=== PATIENT | female | born 1985 | race Caucasian/White ===

== ENCOUNTER 2017-02-16 09:40 | Emergency (ER) | payer MEDICAID ==
[~2017-02-16] VITALS: Ht 160 cm; Wt 79.0 kg
[2017-02-16 11:17] VITALS: BP 104/56
[2017-02-16] MEDS ORDERED: MAGNESIUM/ALUMINUM HYDROXIDE/SIMETHICONE 30ML UDC PO ONE (12:15)
[2017-02-16] MEDS ORDERED: FAMOTIDINE 20MG TABLET PO ONE (12:15)
[2017-02-16] MEDS ORDERED: VISCOUS LIDOCAINE 2% 15 ML UDC MM PRN (12:15)
[2017-02-16 12:59] LABS: BASOPHILS % 0.4 % (0.0-2.0); EOSINOPHILS % 1.5 % (0.0-5.0); HEMATOCRIT. 35.1 % (36.0-48.0); HEMOGLOBIN. 11.7 g/dL (12.0-16.0); LYMPHOCYTES % 34.7 % (20.0-50.0); MEAN CORPUSCULAR HEMOGLOBIN 27.7 pg (28.0-32.0); MEAN CORPUSCULAR VOLUME 82.9 fL (81.0-99.0); MEAN PLATELET VOLUME 8.5 fl (7.4-10.4); MONOCYTES % 5.5 % (2.0-8.0); NEUTROPHILS % 57.9 % (40.0-76.0); PLATELET 303 x1000/uL (130-400); RED BLOOD CELL COUNT 4.23 mill/uL (4.2-5.4); RED CELL DISTRIBUTION WIDTH 13.3 % (11.6-14.6)
[2017-02-16 12:59] LABS: CLARITY URINE CLEAR (CLEAR); COLOR URINE YELLOW (YELLOW); GLUCOSE URINE NEGATIVE (NEGATIVE); KETONES URINE NEGATIVE (NEGATIVE); LEUKOCYTE ESTERASE URINE NEGATIVE (NEGATIVE); NITRITE URINE NEGATIVE (NEGATIVE); OCCULT BLOOD URINE NEGATIVE (NEGATIVE); PROTEIN URINE NEGATIVE (NEGATIVE); SPECIFIC GRAVITY URINE 1.015 (1.005-1.030); UROBILINOGEN URINE 0.2 E.U./dL (0.2-1.0)
[2017-02-16] MEDS ORDERED: SUCRALFATE 1G TABLET PO SCH (13:00)
[2017-02-16 13:08] LABS: CARBON DIOXIDE 27 mEq/L (21-32); CHLORIDE 107 mEq/L (98-107)
== END 2017-02-16 14:35 | disposition home or self-care (01) ==
LOC: ER 11:07
DX: K80.20 Calculus of gallbladder without cholecystitis without obstruction (principal); Z98.890 Other specified postprocedural states; Z87.19 Personal history of other diseases of the digestive system
CPT/HCPCS: 36415; 76705; 80053; 81003; 83690; 85025; 99285

== ENCOUNTER 2018-03-17 07:12 | Emergency (ER) | payer MEDICAID ==
[~2018-03-17] VITALS: Ht 157.5 cm; Wt 73.0 kg
[2018-03-17] MEDS ORDERED: SODIUM CHLORIDE 0.9% 1,000 ML IV ONE (07:41)
[2018-03-17] MEDS ORDERED: KETOROLAC 30MG/ML VIAL IV STA (07:41)
[2018-03-17] MEDS ORDERED: ONDANSETRON HCL 4MG/2ML INJ IV STA (07:41)
[2018-03-17 08:20] LABS: BASOPHILS % 0.4 % (0.0-2.0); EOSINOPHILS % 0.8 % (0.0-5.0); HEMOGLOBIN. 12.4 g/dL (12.0-16.0); LYMPHOCYTES % 24.7 % (20.0-50.0); MEAN CORPUSCULAR HEMOGLOBIN 28.3 pg (28.0-32.0); MEAN CORPUSCULAR VOLUME 83.9 fL (81.0-99.0); MEAN PLATELET VOLUME 8.5 fl (7.4-10.4); MONOCYTES % 5.5 % (2.0-8.0); NEUTROPHILS % 68.6 % (40.0-76.0); PLATELET 363 x1000/uL (130-400); RED BLOOD CELL COUNT 4.41 mill/uL (4.2-5.4); RED CELL DISTRIBUTION WIDTH 13.6 % (11.6-14.6)
[2018-03-17 08:24] LABS: CLARITY URINE CLOUDY (CLEAR); COLOR URINE YELLOW (YELLOW); KETONES URINE NEGATIVE (NEGATIVE); LEUKOCYTE ESTERASE URINE NEGATIVE (NEGATIVE); NITRITE URINE NEGATIVE (NEGATIVE); OCCULT BLOOD URINE NEGATIVE (NEGATIVE); PROTEIN URINE NEGATIVE (NEGATIVE); SPECIFIC GRAVITY URINE 1.022 (1.005-1.030); UROBILINOGEN URINE 0.2 E.U./dL (0.2-1.0)
[2018-03-17 08:27] LABS: CHLORIDE 103 mEq/L (98-107)
[2018-03-17 08:49] LABS: HCG SCREEN NEGATIVE
[2018-03-17 09:43] VITALS: BP 107/84
== END 2018-03-17 09:51 | disposition home or self-care (01) ==
LOC: ER 07:51
DX: A08.4 Viral intestinal infection, unspecified (principal); Z98.890 Other specified postprocedural states
CPT/HCPCS: 36415; 80053; 81003; 81025; 83690; 84703; 85025; 85610; 96374; 96375; 99283; J1885; J2405; J7030

== ENCOUNTER 2018-05-30 16:00 | Emergency (ER) | payer SELFPAY ==
[~2018-05-30] VITALS: Ht 165.1 cm; Wt 154.3 kg
[2018-05-30] MEDS ORDERED: SODIUM CHLORIDE 0.9% 1,000 ML IV ONE (17:15)
[2018-05-30 17:44] LABS: BASOPHILS % 0.3 % (0.0-2.0); EOSINOPHILS % 0.4 % (0.0-5.0); HEMATOCRIT. 33.6 % (36.0-48.0); HEMOGLOBIN. 11.1 g/dL (12.0-16.0); LYMPHOCYTES % 16.2 % (20.0-50.0); MEAN CORPUSCULAR HEMOGLOBIN 27.7 pg (28.0-32.0); MEAN CORPUSCULAR VOLUME 83.7 fL (81.0-99.0); MEAN PLATELET VOLUME 8.4 fl (7.4-10.4); MONOCYTES % 5.7 % (2.0-8.0); NEUTROPHILS % 77.4 % (40.0-76.0); PLATELET 266 x1000/uL (130-400); RED BLOOD CELL COUNT 4.02 mill/uL (4.2-5.4); RED CELL DISTRIBUTION WIDTH 13.5 % (11.6-14.6)
[2018-05-30 17:51] LABS: CHLORIDE 108 mEq/L (98-107)
[2018-05-30 17:55] LABS: ETHANOL BLOOD < 10 mg/dL
[2018-05-30 18:08] LABS: HCG SCREEN NEGATIVE
[2018-05-30 18:50] LABS: CLARITY URINE CLOUDY (CLEAR); COLOR URINE RED (YELLOW); KETONES URINE NEGATIVE (NEGATIVE); LEUKOCYTE ESTERASE URINE 2+ (NEGATIVE); NITRITE URINE NEGATIVE (NEGATIVE); OCCULT BLOOD URINE 3+ (NEGATIVE); PROTEIN URINE 2+ (NEGATIVE); SPECIFIC GRAVITY URINE 1.017 (1.005-1.030); UROBILINOGEN URINE 0.2 E.U./dL (0.2-1.0)
[2018-05-30 18:59] LABS: *AMPHETAMINES SCREEN URINE NEGATIVE (NEGATIVE); *BARBITURATES SCREEN URINE NEGATIVE (NEGATIVE); *BENZODIAZEPINES SCREEN URINE NEGATIVE (NEGATIVE); *COCAINE SCREEN URINE NEGATIVE (NEGATIVE); METHADONE URINE SCREEN NEGATIVE (NEGATIVE); OPIATES URINE SCREEN NEGATIVE (NEGATIVE)
[2018-05-30 19:00] LABS: PHENCYCLIDINE URINE SCREEN NEGATIVE (NEGATIVE)
[2018-05-30 19:33] LABS: CANNABINOID URINE SCREEN PRESUMTIVE POSITIVE (NEGATIVE)
[2018-05-30 22:07] VITALS: BP 95/53
== END 2018-05-30 22:10 | disposition home or self-care (01) ==
LOC: ER 16:43
DX: R55 Syncope and collapse (principal); N30.00 Acute cystitis without hematuria
CPT/HCPCS: 36415; 80053; 80305; 80307; 80320; 80329; 81003; 81025; 82140; 84703; 85025; 87086; 93005; 96360; 96361; 99284; J7030; G0480

== ENCOUNTER 2019-04-06 01:07 | Emergency (ER) | payer MEDICAID ==
[~2019-04-06] VITALS: Ht 160 cm; Wt 78.5 kg
[2019-04-06] MEDS ORDERED: SODIUM CHLORIDE 0.9% 1,000 ML IV ONE ×2 (04:12→11:45)
[2019-04-06 04:35] LABS: BASOPHILS % 0.4 % (0.0-2.0); EOSINOPHILS % 1.8 % (0.0-5.0); HEMATOCRIT. 35.7 % (36.0-48.0); HEMOGLOBIN. 12.1 g/dL (12.0-16.0); LYMPHOCYTES % 45.5 % (20.0-50.0); MEAN CORPUSCULAR HEMOGLOBIN 28.5 pg (28.0-32.0); MEAN PLATELET VOLUME 8.5 fl (7.4-10.4); MONOCYTES % 6.1 % (2.0-8.0); NEUTROPHILS % 46.2 % (40.0-76.0); PLATELET 249 x1000/uL (130-400); RED BLOOD CELL COUNT 4.25 mill/uL (4.2-5.4); RED CELL DISTRIBUTION WIDTH 13.3 % (11.6-14.6)
[2019-04-06 04:41] LABS: CHLORIDE 107 mEq/L (98-107)
[2019-04-06 05:07] LABS: B-HCG QUANTITATIVE 7475 mIU/mL (<3)
[2019-04-06 05:22] LABS: CLARITY URINE CLOUDY (CLEAR); COLOR URINE YELLOW (YELLOW); KETONES URINE NEGATIVE (NEGATIVE); LEUKOCYTE ESTERASE URINE TRACE (NEGATIVE); NITRITE URINE NEGATIVE (NEGATIVE); OCCULT BLOOD URINE 3+ (NEGATIVE); PH URINE 6.5 (4.5-8.0); PROTEIN URINE NEGATIVE (NEGATIVE); SPECIFIC GRAVITY URINE 1.014 (1.005-1.030); UROBILINOGEN URINE 0.2 E.U./dL (0.2-1.0)
[2019-04-06 12:42] VITALS: BP 111/58
== END 2019-04-06 12:45 | disposition left against medical advice (07) ==
LOC: ER 01:07
DX: O02.1 Missed abortion (principal); Z3A.10 10 weeks gestation of pregnancy; Z98.890 Other specified postprocedural states
CPT/HCPCS: 36415; 76801; 76817; 80053; 81003; 81025; 84702; 85025; 86850; 86900; 86901; 87210; 99284; J7030

== ENCOUNTER 2019-04-11 06:31 | Emergency (ER) | payer MEDICAID ==
[~2019-04-11] VITALS: Ht 154.9 cm; Wt 77.0 kg
[2019-04-11 08:23] LABS: BASOPHILS % 0.1 % (0.0-2.0); EOSINOPHILS % 0.2 % (0.0-5.0); HEMATOCRIT. 33.7 % (36.0-48.0); HEMOGLOBIN. 11.5 g/dL (12.0-16.0); LYMPHOCYTES % 13.6 % (20.0-50.0); MEAN CORPUSCULAR HEMOGLOBIN 28.6 pg (28.0-32.0); MEAN CORPUSCULAR VOLUME 83.7 fL (81.0-99.0); MEAN PLATELET VOLUME 8.6 fl (7.4-10.4); MONOCYTES % 4.1 % (2.0-8.0); PLATELET 311 x1000/uL (130-400); RED BLOOD CELL COUNT 4.03 mill/uL (4.2-5.4); RED CELL DISTRIBUTION WIDTH 13.3 % (11.6-14.6)
[2019-04-11] MEDS ORDERED: SODIUM CHLORIDE 0.9% 1,000 ML IV ONE (08:24)
[2019-04-11] MEDS ORDERED: KETOROLAC 30MG/ML VIAL IV STA (08:24)
[2019-04-11 08:25] LABS: CLARITY URINE TURBID (CLEAR); COLOR URINE RED (YELLOW); KETONES URINE NEGATIVE (NEGATIVE); LEUKOCYTE ESTERASE URINE 2+ (NEGATIVE); NITRITE URINE POSITIVE (NEGATIVE); OCCULT BLOOD URINE 2+ (NEGATIVE); PROTEIN URINE 2+ (NEGATIVE); SPECIFIC GRAVITY URINE 1.039 (1.005-1.030); UROBILINOGEN URINE 0.2 E.U./dL (0.2-1.0)
[2019-04-11 09:01] LABS: CHLORIDE 110 mEq/L (98-107)
[2019-04-11 10:50] VITALS: BP 97/52
== END 2019-04-11 10:50 | disposition home or self-care (01) ==
LOC: ER 06:31
DX: O20.9 Hemorrhage in early pregnancy, unspecified (principal); O99.281 Endocrine, nutritional and metabolic diseases complicating pregnancy, first trimester; R42 Dizziness and giddiness; Z98.890 Other specified postprocedural states; Z3A.10 10 weeks gestation of pregnancy
CPT/HCPCS: 36415; 76801; 76817; 80053; 81003; 84702; 85025; 96361; 96374; 99284; J1885; J7030; Z7610